=== PATIENT | male | born 1980 | race Two or more races ===

== ENCOUNTER 2017-01-24 20:54 | Emergency (ER) | payer MEDICAID ==
[~2017-01-24] VITALS: Ht 177.8 cm; Wt 81.6 kg
[~2017-01-24 20:54] MED LIST: AMPH10TA4 PO
[2017-01-24 21:05] VITALS: BP 131/74
== END 2017-01-24 21:34 | disposition home or self-care (01) ==
LOC: ER 20:56
DX: L23.7 Allergic contact dermatitis due to plants, except food (principal)
CPT/HCPCS: A4606; Z7610

== ENCOUNTER 2019-10-04 09:15 | Emergency (ER) | payer MEDICAID ==
[~2019-10-04] VITALS: Ht 177.8 cm; Wt 75.3 kg
--- NOTE | 2019-10-04 09:28 | NUR ---
[employer] AT BEDSIDE.
--- NOTE | 2019-10-04 09:40 | NUR ---
SEEN AND EXAMINED BY
[2019-10-04 10:48] VITALS: BP 117/71
--- NOTE | 2019-10-04 10:48 | NUR ---
PT ASLEEP ON BED, EASILY AROUSABLE, AAOX4, NOT IN RESPIRATORY DISTRESS, V/S STABLE, KEPT RESTED AND COMFORTABLE,WILL CONTINUE TO MONITOR.
--- NOTE | 2019-10-04 11:30 | NUR ---
Patient discharged to home in stable condition. Written and verbal after care instructions given. Patient verbalizes understanding of instruction.
== END 2019-10-04 11:31 | disposition home or self-care (01) ==
LOC: ER 09:16
DX: F19.90 Other psychoactive substance use, unspecified, uncomplicated (principal); F12.10 Cannabis abuse, uncomplicated; Z79.899 Other long term (current) drug therapy
CPT/HCPCS: 82962-TC

== ENCOUNTER 2021-05-25 23:48 | Emergency (ER) | payer MEDICAID, SELFPAY ==
[~2021-05-25] VITALS: Ht 177.8 cm; Wt 81.6 kg
[2021-05-26 00:48] VITALS: BP 127/72
[2021-05-26] MEDS ORDERED: ACETAMINOPHEN ES 500 MG TABLET PO ONE (01:00)
[2021-05-26] MEDS ORDERED: ACETAMINOPHEN ES 500 MG TABLET ONE (01:04)
[2021-05-26] MEDS ORDERED: IBUP-1957 PO (02:01)
[2021-05-26] MEDS ORDERED: ACET-73 PO (02:01)
[2021-05-26] MEDS ORDERED: BENZ-13 PO (02:01)
[2021-05-26] MEDS ORDERED: GUAI5SYR PO (02:04)
== END 2021-05-26 02:19 | disposition home or self-care (01) ==
LOC: ER 23:57
DX: U07.1 COVID-19 (principal)
CPT/HCPCS: 71045; 87426; 99284; C9803

== ENCOUNTER 2024-02-12 22:39 | Emergency (ER) | payer MEDICAID, OTHER ==
[~2024-02-12] VITALS: Ht 180.3 cm; Wt 90.7 kg
[~2024-02-12 22:39] MED LIST changes: +ACET-73 PO; +BENZ-13 PO; +GUAI5SYR PO; +IBUP-1957 PO
[2024-02-13] MEDS ORDERED: TETRAcaine 5 ML BOTTLE ONE (00:02)
[2024-02-13] MEDS: FLUORESCEIN SODIUM OPHTH 1 EA STRIP OP ONE (00:11)
[2024-02-13] MEDS: TETRAcaine 5 ML BOTTLE EACHEYE ONE (00:11)
[2024-02-13] MEDS ORDERED: FLUORESCEIN SODIUM OPHTH 1 EA STRIP ONE (00:26)
[2024-02-13] MEDS ORDERED: CIPR2.5D14 LEFTEYE (00:31)
[2024-02-13 00:46] VITALS: BP 125/87; TEMP 97.9; O2SAT 97
== END 2024-02-13 00:47 | disposition home or self-care (01) ==
LOC: ER 22:41
DX: S05.02XA Injury of conjunctiva and corneal abrasion without foreign body, left eye, initial encounter (principal); F12.10 Cannabis abuse, uncomplicated; X58.XXXA Exposure to other specified factors, initial encounter; Y93.89 Activity, other specified; Y92.89 Other specified places as the place of occurrence of the external cause; Y99.8 Other external cause status

== ENCOUNTER 2025-04-15 21:03 | Emergency (ER) | payer MEDICAID, OTHER ==
[~2025-04-15] VITALS: Ht 180.3 cm; Wt 85.3 kg
[~2025-04-15 21:03] MED LIST changes: +CIPR2.5D14 LEFTEYE
[2025-04-15 22:50] VITALS: BP 118/82; TEMP 98.8; O2SAT 98
== END 2025-04-15 22:51 | disposition home or self-care (01) ==
LOC: ER 21:07
DX: R05.9 Cough, unspecified (principal); R10.9 Unspecified abdominal pain; R11.2 Nausea with vomiting, unspecified; R07.9 Chest pain, unspecified; F12.90 Cannabis use, unspecified, uncomplicated; Z79.1 Long term (current) use of non-steroidal anti-inflammatories (NSAID)
CPT/HCPCS: 71045-TC